=== PATIENT | male | born 1950 | race Caucasian/White ===

== ENCOUNTER 2018-01-06 15:42 | Emergency (ER) | payer MEDICARE, BC ==
--- NOTE | 2018-01-06 16:04 | Emergency Department Record ---
History of Present Illness - General Chief Complaint: Laceration(s) Stated Complaint: LT HAND SMASHED/LAC Time Seen by Provider: 01/06/18 15:54 Source: Patient Mode of Arrival: Ambulatory Limitations: No limitations - History of Present Illness Initial Commments: 67 yo male presents with a hand injury. He was loading his mower into a truck and he slipped injuring his middle and ring fingers on his left hand. He is not a diabetic. He is unsure of last tetanus. He is not a diabetic. His ring was removed on arrival. -: Minutes(s) Extremity Location: Left: Hand Place: Home Context: Accidental Associated Symptoms: None Treatments Prior to Arrival: Bandage - [place] Coma Scale Eye Response: (4) Open spontaneously Motor Response: (6) Obeys commands Verbal Response: (5) Oriented [place] Total: 15 - Related Data Home Medications Medication Instructions Recorded Confirmed Last Taken Atenolol 50 mg PO DAILY 01/06/18 01/06/18 Unknown Atorvastatin Calcium [Lipitor] 20 mg PO DAILY 01/06/18 01/06/18 Unknown Lisinopril 20 mg PO DAILY 01/06/18 01/06/18 Unknown Previous Rx's Medication Instructions Recorded Cephalexin [Keflex] 500 mg PO TID #21 cap 01/06/18 Hydrocodone/APAP 5/325Mg [[place] 1 each PO Q6H #12 tab 01/06/18 5Mg/325Mg] Allergies Allergy/AdvReac Type Severity Reaction Status Date / Time No Known Drug Allergies Allergy Verified 01/22/15 13:03 Review of Systems Constitutional: Denies: Chills, Fever, Weakness Eyes: Denies: Eye discharge ENT: Denies: Congestion, Throat pain Respiratory: Denies: Cough Cardiovascular: Denies: Chest pain, Syncope Endocrine: Denies: Fatigue Gastrointestinal: Denies: Abdominal pain, Diarrhea, Nausea, Vomiting Genitourinary: Denies: Dysuria, Frequency, Hematuria Musculoskeletal: Reports: As per HPI, Arthralgia Skin: Reports: Other. Denies: Bruising, Change in color Neurological: Reports: Numbness (tips) Psychiatric: Denies: Anxiety Hematological/Lymphatic: Denies: Easy bleeding, Easy bruising Past Medical History - SOCIAL HISTORY Smoking Status: Former smoker - RESPIRATORY Hx Respiratory Disorders: No - CARDIOVASCULAR Hx Cardio Disorders: Yes Hx Hypertension: Yes - NEURO Hx Neuro Disorders: No - GI Hx GI Disorders: No - Hx Genitourinary Disorders: No - ENDOCRINE Hx Endocrine Disorders: No - MUSCULOSKELETAL Hx Musculoskeletal Disorders: No - PSYCH Hx Psych Problems: No - HEMATOLOGY/ONCOLOGY Hx Hematology/Oncology Disorders: No Physical Exam - General General Appearance: Alert, Oriented x3, Cooperative, No acute distress Limitations: No limitations - Head Head exam: Atraumatic, Normal inspection - Eye Eye exam: Normal appearance - ENT ENT exam: Normal exam Ear exam: Normal external inspection Nasal Exam: Normal inspection Mouth exam: Normal external inspection - Neck Neck exam: Normal inspection - Cardiovascular Cardiovascular Exam: Regular rate, Normal rhythm, Normal heart sounds Peripheral Pulses: 2+: Radial (L) - Rectal Rectal exam: Deferred - exam: Deferred - Extremities Extremities exam: Normal capillary refill. negative: Normal inspection, Full ROM Image of Hand: 1 - Left ringer finger pad avulsion, Right finger partial avulsions and lacerations, no FB visible. No rotation or angulation, middle finger subungual hematoma. - Neurological Neurological exam: Alert, Normal gait, Oriented X3. negative: Motor sensory deficit (decreased sensation at the tips near the injury) - Psychiatric Psychiatric exam: negative: Agitated, Anxious - Skin Skin exam: Abrasion. negative: Cyanosis, Diaphoretic, Erythema, Mottled Type of lesion: Laceration Course - Reevaluation(s) Reevaluation #1: The fingers were immediately irrigated and cleaned on arrival Betadine prep Digital Block of the Middle and Ring finger with 6ml Bupivacaine XR obtained. Small avulsion fracture later tip of 4th finger Procedure: #1 Middle finger 1.5cm laceration Flap like Copiously irrigated with NS No FB Ethilon 4-0 Suture 11 Sutures placed #2 Ring finger 3.5cm Copiously irrigated again No FB. No visible tendon injury. Flexion is intact Ethilon 4-0 Suture The subungual heamtoma was trephinated as well Antibiotic ointment, bulking non stick dressing placed The case was reviewed with Dr Razo for follow up tomorrow We discussed at length this is a high risk injury with potential for prolonged healing and complications He will follow up tomorrow with hand surgery for evaluation We discussed reasons to return to the ED for immediately evaluation otherwise follow up with hand surgery. 01/06/18 19:32 Disposition Disposition: Discharge Clinical Impression: Subungual hematoma Avulsion of finger tip Qualifiers: Encounter type: initial encounter Qualified Code(s): S61.209A - Unspecified open wound of unspecified finger without damage to nail, initial encounter Finger laceration Qualifiers: Encounter type: initial encounter Finger: unspecified finger Damage to nail status: unspecified Foreign body presence: without foreign body Laterality: left Qualified Code(s): S61.219A - Laceration without foreign body of unspecified finger without damage to nail, initial encounter Disposition: Home, Self-Care Condition: (1) Good Instructions: Laceration (ED) Additional Instructions: Call Dr Razo's office at 8:30am to be seen tomorrow. This is a high risk injury for prolonged healing. Take the antibiotic as directed Return tonight if you have uncontrolled pain, bleeding or any other new concerns Prescriptions: Cephalexin [Keflex] 500 mg PO TID #21 cap Hydrocodone/APAP 5/325Mg [[place] 5Mg/325Mg] 1 each PO Q6H #12 tab Referrals: ISAIAS RAZO M.D. [MEDICAL DOCTOR] - Forms: Patient Portal Access Time of Disposition: 18:57 Quality - Quality Measures Quality Measures: N/A - Blood Pressure Screening Does Patient Have Any of the Following: No Blood Pressure Classification: Hypertensive Reading Systolic Measurement: 143 Diastolic Measurement: 91 Screening for High Blood Pressure: < Pre-Hypertensive BP, F/U Documented > [ [id number]] Pre-Hypertensive Follow-up Interventions: Referral to alternative/primary care provider.
[2018-01-06] MEDS ORDERED: CEPHALEXIN 500 MG CAPSULE PO STA (16:07)
[2018-01-06] MEDS ORDERED: Diph,Pert(Acell),Tet Vac 0.5 ML SYR IM ONE (16:07)
--- NOTE | 2018-01-06 21:47 | RADIOLOGY REPORT ---
EXAM: HAND, LEFT 3 VIEWS HISTORY: INJURY. TECHNIQUE: Three views of the left hand. COMPARISON: None. ENCOUNTER: Initial. FINDINGS: Overlying bandaging material obscures detail. However, there is a minimally displaced avulsion fracture of the distal tuft of the fourth digit. Soft tissue changes of both the third and fourth digits distally. Questionably nondisplaced distal tuft fracture of the third digit. IMPRESSION: NONDISPLACED/MINIMALLY DISPLACED AVULSION FRACTURE OF THE DISTAL FOURTH DIGIT WITH A QUESTIONABLE DISTAL TUFT FRACTURE OF THE THIRD DIGIT. ASSOCIATED SOFT TISSUE CHANGES/INJURY. JOB NUMBER: [id number] MTDD
== END 2018-01-06 19:23 | disposition home or self-care (01) ==
LOC: ER 15:42
DX: S61.213A Laceration without foreign body of left middle finger without damage to nail, initial encounter (principal); S61.215A Laceration without foreign body of left ring finger without damage to nail, initial encounter; S60.032A Contusion of left middle finger without damage to nail, initial encounter; I10 Essential (primary) hypertension; W22.09XA Striking against other stationary object, initial encounter; Z87.891 Personal history of nicotine dependence; Y92.007 Garden or yard of unspecified non-institutional (private) residence as the place of occurrence of the external cause
CPT/HCPCS: 11740; 12042; 90715; 96372; 99283; 99284

== ENCOUNTER 2018-05-26 05:08 | Emergency (ER) | payer MEDICARE, BC ==
[2018-05-26] MEDS ORDERED: DEXAMETHASONE SOD PHOSPHATE 10MG/ML VIAL PO ONE (05:17)
[2018-05-26] MEDS ORDERED: AMOXICILLIN/POTASSIUM CLAV 875MG/125MG TABLET PO ONE (05:17)
[2018-05-26] MEDS ORDERED: DIPHENHYDRAMINE HCL 25 MG CAPSULE PO ONE (05:27)
--- NOTE | 2018-05-26 05:27 | Emergency Department Record ---
History of Present Illness - General Chief complaint: Shortness of breath Stated complaint: ARNAUD Time Seen by Provider: 05/26/18 05:16 Source: Patient, Family Mode of Arrival: Ambulatory Limitations: No limitations - History of Present Illness Initial comments: 68 yo male presents with a foreign body sensation in the throat. He woke up about 30 minutes ago with the symptoms. He has a feeling like something is in the way. He was asymptomatic when he when to bed. No fever. No cough but he has felt a little congestion. He has had a mild runny nose. No neck pain. No chest pain. No voice changes. No gagging but he can feel the sensation in the back of the throat. MD complaint: Sore throat -: Hour(s) (1) Location: Throat Severity: Moderate Quality: Other (foreign body sensation) Consistency: Constant Improves with: None Worsens with: Swallowing Associated Symptoms: Other - Related Data Home Medications Medication Instructions Recorded Confirmed Last Taken Aspirin [Aspirin EC] 81 mg PO DAILY 05/26/18 05/26/18 Unknown Cholecalciferol (Vitamin D3) 2,000 unit PO DAILY 05/26/18 05/26/18 Unknown [Vitamin D3] Fish Oil/Borage/Flax/Om3,6,9 1 1,600 mg PO DAILY 05/26/18 05/26/18 Unknown [[place] 3-6-9 Complex Softgel] Hydrochlorothiazide [Hctz] 25 mg PO DAILY 05/26/18 05/26/18 Unknown Multivitamin [Daily Multiple 1 each PO DAILY 05/26/18 05/26/18 Unknown Vitamin] Potassium Chloride [Klor-Con M20] 20 mg PO DAILY 05/26/18 05/26/18 Unknown Tamsulosin HCl [Flomax] 0.4 mg PO DAILY 05/26/18 05/26/18 Unknown Previous Rx's Medication Instructions Recorded Amoxicillin/Potassium Clav 1 tab PO BID #14 tab 05/26/18 [Augmentin 875-125 Tablet] Diphenhydramine HCl [Benadryl] 25 mg PO Q6H #20 cap 05/26/18 Methylprednisolone [Medrol Dose 4 mg PO DAILY #1 tab.ds.pk 05/26/18 Pack] Allergies Allergy/AdvReac Type Severity Reaction Status Date / Time No Known Drug Allergies Allergy Verified 01/22/15 13:03 Review of Systems Constitutional: Denies: Chills, Fever, Malaise, Night sweats Eyes: Denies: Eye discharge, Eye pain, Photophobia, Vision change ENT: Reports: Congestion, Throat pain Respiratory: Denies: Cough, Dyspnea, Hemoptysis, Wheezes Cardiovascular: Denies: Chest pain, Palpitations, Syncope Endocrine: Denies: Fatigue Gastrointestinal: Denies: Abdominal pain, Diarrhea, Nausea, Vomiting Genitourinary: Denies: Dysuria, Frequency, Hematuria Musculoskeletal: Denies: Arthralgia, Back pain, Myalgia Skin: Denies: Bruising, Change in color, Rash Neurological: Denies: Headache Psychiatric: Denies: Anxiety Hematological/Lymphatic: Denies: Blood Clots, Easy bleeding, Easy bruising, Swollen glands Past Medical History - SOCIAL HISTORY Smoking Status: Former smoker - RESPIRATORY Hx Respiratory Disorders: No - CARDIOVASCULAR Hx Cardio Disorders: Yes Hx Hypertension: Yes - NEURO Hx Neuro Disorders: No - GI Hx GI Disorders: No - Hx Genitourinary Disorders: No - ENDOCRINE Hx Endocrine Disorders: No - MUSCULOSKELETAL Hx Musculoskeletal Disorders: No - PSYCH Hx Psych Problems: No - HEMATOLOGY/ONCOLOGY Hx Hematology/Oncology Disorders: No Physical Exam - General General Appearance: Alert, Oriented x3, Cooperative, No acute distress, Other ( The patient is very relaxed and comfortable. No voice changes. Clear voice. No signs of difficulty breathing or swollowing) Limitations: No limitations - Head Head exam: Atraumatic, Normal inspection - Eye Eye exam: Normal appearance, PERRL. negative: Conjunctival injection, Periorbital swelling, Scleral icterus - ENT ENT exam: Mucous membranes moist. negative: Mucous membranes dry, Normal orophraynx Ear exam: Normal external inspection Nasal Exam: Normal inspection Mouth exam: Normal external inspection, Other (Mild swelling of the uvula, mild uvular erythema, no exudate, normal tonsils, widely patent posterior oral pharynx). negative: Drooling, Muffled voice, Tongue elevation, Tongue normal, Trismus Teeth exam: Normal inspection - Neck Neck exam: Normal inspection, Full ROM. negative: Lymphadenopathy, Tenderness - Respiratory Respiratory exam: Normal lung sounds bilaterally. negative: Accessory muscle use, Decreased breath sounds, Respiratory distress, Rhonchi, Stridor, Wheezes - Cardiovascular Cardiovascular Exam: Regular rate, Normal rhythm, Normal heart sounds Peripheral Pulses: 2+: Radial (R), Radial (L) - Neurological Neurological exam: Alert, Oriented X3 - Psychiatric Psychiatric exam: Normal affect, Normal mood. negative: Agitated, Anxious - Skin Skin exam: Dry, Intact, Normal color, Warm Course - Reevaluation(s) Reevaluation #1: The vitals were reviewed The uvular swelling is mild without exudates or tonsil changes His voice is clear with normal speech No difficulty with swallowing ice water He was given Benadryl, Decadron, Ice water and Augmentin. Based on his mild presentation without signs of infection this may represent allergic vs trauma of snoring. He is on Lisinopril. I instructed him to stop this for now and discuss this with his PCP. No lip, tongue, facial swelling. 05/26/18 05:31 Doing well. No signs that this is a rapidly worsening or progressive process. 05/26/18 05:39 05/26/18 06:29 On recheck he is doing well. Visually there is some improvement. He continues to be without pain, he has a clear voice, drinking without any limitation. 05/26/18 06:50 The patient states he is ready for DC. He is doing well with improvement. No signs of progression. We discussed home care, reasons to return and close follow up with Dr Eaton. I again recommend no Lisinopril On the last recheck the uvula is about 25-50% improved. The expected course is continued improvement. Disposition Disposition: Discharge Clinical Impression: Uvular edema Disposition: Home, Self-Care Condition: (1) Good Instructions: Uvulitis (ED) Additional Instructions: Return immediately if you have any worsening of symptoms, shortness of breath, vomiting, choking, voice changes or new symptoms or concerns. Call Dr Eaton this morning for follow up STOP your Lisinopril and discuss this with Dr Eaton since medicines like Lisinopril can cause swelling of the lips, tongue, throat. Take the prescriptions as directed until gone. Take Benadryl every 6 hours today No solid foods that require chewing today Prescriptions: Amoxicillin/Potassium Clav [Augmentin 875-125 Tablet] 1 tab PO BID #14 tab Diphenhydramine HCl [Benadryl] 25 mg PO Q6H #20 cap Methylprednisolone [Medrol Dose Pack] 4 mg PO DAILY #1 tab.ds.pk Forms: Patient Portal Access Time of Disposition: 06:52 Quality - Quality Measures Quality Measures: N/A - Blood Pressure Screening Does Patient Have Any of the Following: Active Dx of HTN Blood Pressure Classification: Hypertensive Reading Systolic Measurement: 177 Diastolic Measurement: 103 Screening for High Blood Pressure: Patient Exclusion, Hx of HTN [G9744]
== END 2018-05-26 07:01 | disposition home or self-care (01) ==
LOC: ER 05:08
DX: K13.79 Other lesions of oral mucosa (principal); R06.02 Shortness of breath; J02.9 Acute pharyngitis, unspecified; I10 Essential (primary) hypertension; Z87.891 Personal history of nicotine dependence
CPT/HCPCS: 99283 ×2; J1100